=== PATIENT | female | born 1990 | race Caucasian/White ===

== ENCOUNTER 2021-08-26 09:11 | Day surgery (SDC) | payer BC ==
[~2021-08-26] VITALS: Ht 160 cm; Wt 86.0 kg
[2021-08-26 10:05] VITALS: BP 134/83; PULSE 94; TEMP 97.7
[2021-08-26 12:08] VITALS: BP 108/66; PULSE 84; TEMP 97.2
--- NOTE | 2021-08-26 12:08 | NUR ---
Patient arrived back into [facility] from [facility]. Patient is alert and awake. Report recieved from Clark Lubin CRNA and ANTONINO Barnett. Patient requesting coffee and apple sauce. Denies pain or nausea at this time. Pulses palpable on Right lower extremity.
[2021-08-26 12:23] VITALS: BP 103/82; PULSE 72
--- NOTE | 2021-08-26 12:23 | NUR ---
Dr. Landon in to see patient. Patient tolerating food and drink well. Denies pain or nausea at this time. Patient facetiming mom at this time.
[2021-08-26 12:38] VITALS: BP 109/63; PULSE 74
--- NOTE | 2021-08-26 12:38 | NUR ---
Patient tolerated food and drink well. Denies pain or nausea. Reports need to use restroom. Patient ambulated to restroom independently. Got dressed while in restroom.
[2021-08-26 12:53] VITALS: BP 117/66; PULSE 88
--- NOTE | 2021-08-26 12:55 | NUR ---
Went through discharge instructions with patient and patient's father. Both verbalized understanding to education. IV removed without complications. Patient escorted to patient entrance via wheelchair by ANTONINO Rodas. Patient left in the care of her father, Clark.
== END 2021-08-26 13:00 | disposition home or self-care (01) ==
LOC: SDCO 09:11
DX: G57.81 Other specified mononeuropathies of right lower limb (principal); M77.51 Other enthesopathy of right foot and ankle; S93.524A Sprain of metatarsophalangeal joint of right lesser toe(s), initial encounter; M67.471 Ganglion, right ankle and foot
CPT/HCPCS: J0690; J1885; J2405; J2704; J3010; J7120

== ENCOUNTER 2021-11-22 15:47 | Emergency (ER) | payer BC ==
[~2021-11-22] VITALS: Ht 160 cm; Wt 90.0 kg
[2021-11-22 16:00] VITALS: BP 124/85; PULSE 72; TEMP 98.2
[2021-11-22] MEDS ORDERED: PROAIR HFA0.09 MG/AC IH (16:44)
[2021-11-22] MEDS ORDERED: FLONASEALLERGY NS (16:44)
== END 2021-11-22 17:05 | disposition home or self-care (01) ==
LOC: COL.ER 15:47
DX: H69.81 Other specified disorders of Eustachian tube, right ear (principal); J45.909 Unspecified asthma, uncomplicated; Z91.040 Latex allergy status; Z28.311 Partially vaccinated for COVID-19

== ENCOUNTER 2024-02-24 08:23 | Outpatient (RCR) | payer BC ==
[~2024-02-24 08:23] MED LIST: FLONASEALLERGY NS; PROAIR HFA0.09 MG/AC IH
== END 2024-02-25 ==
LOC: WSPT
DX: M54.50 Low back pain, unspecified (principal)